=== PATIENT | male | born 1975 | race Hispanic/Latino ===

== ENCOUNTER 2024-11-01 16:24 | Emergency (ER) | payer BC ==
[2024-11-01 17:03] LABS: Sqamous Epithelial None Seen /HPF (None Seen); Urine Culture Reflex Order REFLEXED; Urine Microscopic Reflex YN ORDER UMIC; Urine Yeast (Budding) Trace /HPF (None Seen)
[2024-11-01 17:31] LABS: Absolute Lymphocytes (CBC) 1.6 K/uL (0.7-4.9); Hematocrit 42.6 % (39.6-49.0); Hemoglobin 15.0 g/dL (13.6-17.9); MCH 30.6 pg (27.0-35.0); MCHC 35.2 g/dL (32.0-36.0); MCV 87.0 fL (80-100); MPV 8.2 fL (7.6-11.3); Nucleated RBC Absolute Count 0.0 (0-0); Nucleated Red Blood Cells % 0.1 % (0-0); RBC Red Blood Cell Count 4.90 M/uL (4.33-5.43); White Blood Count 9.20 thou/uL (4.3-10.9)
[2024-11-01 17:50] LABS: ALT/SGPT 40.0 U/L (16-61); AST/SGOT 17.0 U/L (15-37); Albumin 3.7 g/dL (3.4-5.0); Albumin/Globulin Ratio 1.0 (1.1-1.8); Alkaline Phosphatase 88.0 U/L (45-117); Anion Gap 8.9 mEq/L (5.0-15.0); BUN Blood Urea Nitrogen 19.0 mg/dL (7-18); Globulin 3.7 g/dL (2.3-3.5); Glucose Level 122.0 mg/dL (74-106); Lipase 40.0 U/L (13-75); Potassium 3.9 mEq/L (3.5-5.1)
[2024-11-01] MEDS ORDERED: CEFTRIAXONE 1000 MG/VIAL ONE (18:28)
[2024-11-01] MEDS ORDERED: KETOROLAC 30 MG/ML INJ ONE (18:29)
--- NOTE | 2024-11-01 18:49 | RAD REPORT ---
EXAMINATION: CT Abdomen Pelvis W/Wo Contrast CLINICAL INDICATION: Male, 49 years old. [facility] MAIN left flank pain Bed Name: 12 TECHNIQUE: CT abdomen and pelvis was performed, before and after the administration of IV contrast, a s per department protocol. Axial, sagittal and coronal reconstructions were obtained. One or more of the following dose reduction techniques were used: Automated exposure control, adjustment of the m A and/or kV according to patient size, and/or iterative reconstruction. Unless otherwise specified, incidental findings do not require dedicated imaging follow-up. COMPARISON: No prior exam. FINDINGS: LOWER CHEST: The visualized lung bases are clear. LIVER: Normal in size and contour. No focal lesion. BILIARY SYSTEM: No suspicious abnormalities. PANCREAS: No mass, ductal dilation, or salma-pancreatic fluid. SPLEEN: Normal size. No focal lesion. ADRENALS: Normal; no mass. KIDNEYS AND URETERS: Normal size and contour. Bilateral parapelvic cysts larger on the left and promi nent left renal pelvis. No hydronephrosis or hydroureter. 2 mm left upper to interpolar nonobstructing calculus. No enhancing mass or filling defect within the renal pelvises. No suspiciou s filling defects within the ureters. URINARY BLADDER: Normal in appearance. No suspicious mass or stone. GASTROINTESTINAL TRACT: No evidence of bowel obstruction, free air, significant free fluid or abscess . APPENDIX: No inflammatory changes in region of appendix. LYMPH NODES: No lymphadenopathy. REPRODUCTIVE ORGANS: No pathologic process. MUSCULOSKELETAL: No acute or suspicious osseous abnormality. ADDITIONAL FINDINGS: None. IMPRESSION: Left upper to interpolar 2 mm calculus. No other acute or significant abnormalities seen in the abdomen or pelvis. Incidental findings as abo ve.
--- NOTE | 2024-11-01 19:10 | EDPHYS ---
Physician Documentation [facility] Name: Mat Arias Sr Age: 49 yrs Sex: Male : 1975 Arrival Date: 11/01/2024 Time: 16:24 Bed 12 Private MD: ED Physician Simona Granger HPI: 11/01 16:45 This 49 yrs old Male presents to ER via Ambulatory with complaints of Urinary Problem. cp 16:45 The patient presents with urinary symptoms, dysuria, urinary frequency. Onset: The cp symptoms/episode began/occurred 1 month(s) ago. 16:45 Associated signs and symptoms: Pertinent positives: flank pain, Pertinent negatives: cp abdominal pain, diarrhea, fever, penile discharge. Severity of symptoms: in the emergency department the symptoms are unchanged, despite home interventions. Historical: - Allergies: 16:58 No Known Allergies; iw - PMHx: 16:58 Hypertensive disorder; iw - Immunization history:: Adult Immunizations up to date. - Infectious Disease History:: Denies. - Social history:: Smoking status: Patient denies any tobacco usage or history of. ROS: 16:50 Constitutional: Negative for fever, poor PO intake, cp 16:50 Respiratory: Negative for cough, shortness of breath, wheezing, cp 16:50 Abdomen/GI: Negative for abdominal pain, vomiting, diarrhea, constipation, 16:50 Back: Positive for flank pain, on the left, 16:50 : Positive for urinary frequency, burning with urination, Negative for penile discharge, testicular pain 16:50 Skin: Positive for rash, of the penile head, 16:50 All other systems are negative, Exam: 16:55 Constitutional: The patient appears in no acute distress, alert, awake, non-toxic, well cp developed, well nourished, overweight 16:55 Head/Face: Normocephalic, atraumatic. cp 16:55 Eyes: Periorbital structures: appear normal, Conjunctiva: normal, no exudate, no injection, Sclera: no appreciated abnormality, Lids and lashes: appear normal, bilaterally, 16:55 ENT: External ear(s): are unremarkable, Nose: is normal, Mouth: Lips: moist, Oral mucosa: moist, Posterior pharynx: Airway: no evidence of obstruction, patent, 16:55 Chest/axilla: Inspection: normal, 16:55 Cardiovascular: Rate: tachycardic, 16:55 Respiratory: the patient does not display signs of respiratory distress, Respirations: normal, no use of accessory muscles, no retractions, labored breathing, is not present, Breath sounds: are clear throughout, no decreased breath sounds, no stridor, no wheezing, 16:55 Abdomen/GI: Inspection: abdomen appears normal, Bowel sounds: active, all quadrants, Palpation: soft, in all quadrants, mild abdominal tenderness, in the left lower quadrant, 16:55 Back: CVA tenderness, that is mild, is noted on the left, 16:55 Skin: rash can be described as areas of hyperpigmentation with no erythema, on the head of penis, 16:55 Neuro: Orientation: to person, place \T\ time. Mentation: is normal, Gait: is steady, at a normal pace, without difficulty, Vital Signs: 16:56 BP 127 / 102; Pulse 101; Resp 18; Temp 97.8; Pulse Ox 97% on R/A; Weight 90.72 kg; iw Height 5 ft. 5 in. ; Pain 7/10; 18:36 BP 125 / 72; Pulse 100; Resp 16; Pulse Ox 100% on R/A; iw 19:45 BP 126 / 89; Pulse 106; Resp 18 S; Pulse Ox 99% on R/A; Pain 5/10; br2 16:56 Body Mass Index 33.28 (90.72 kg, 165.1 cm) iw 16:56 Pain Scale: Adult iw 19:45 Pain Scale: Adult br2 MDM: 18:00 Differential diagnosis: UTI, urinary retention, prostatitis, urethritis, STD, kidney cp stone, pyelonephritis. 19:09 Medical Screening Exam initiated 19:09 Data reviewed: vital signs, nurses notes, lab test result(s), radiologic studies, CT cp scan, and as a result, I will discharge patient. 19:09 I considered the following discharge prescriptions or medication management in the emergency department Medications were administered in the Emergency Department. See MAR. Care significantly affected by the following chronic conditions: Hypertension. Counseling: I had a detailed discussion with the patient and/or guardian regarding the historical points, exam findings, and any diagnostic results supporting the discharge/admit diagnosis, lab results, radiology results, to return to the emergency department if symptoms worsen or persist or if there are any questions or concerns that arise at home. Response to treatment: the patient's symptoms have mildly improved after treatment, and as a result, I will discharge patient. 11/01 16:42 Order name: UA Rfx Randy Cult if indicated; Complete Time: 17:08 cp 11/01 17:08 Interpretation: Reviewed. cp 11/01 17:08 Order name: Urine Culture EDMS 11/01 17:09 Order name: CBC with Diff; Complete Time: 18:03 cp 11/01 17:09 Order name: CMP; Complete Time: 18:03 cp 11/01 17:09 Order name: Lipase; Complete Time: 18:03 cp 11/01 17:15 Order name: GC (Roberto/Chl) Probe CX/URE (Do not order if pt is under 13, order Culture cp instead) 11/01 17:09 Order name: CT Abd/Pelvis- W/WO Contrast; Complete Time: 18:56 cp 11/01 18:57 Interpretation: Reviewed. 11/01 17:09 Order name: IV Saline Lock; Complete Time: 17:29 cp 11/01 17:09 Order name: Labs collected and sent; Complete Time: 17:29 cp Administered Medications: 18:35 Drug: Rocephin IV 1 grams IV at calculated rate once; Given slow IV push per pharmacy iw instructions Route: IV; Rate: calculated rate; Site: right antecubital; 19:15 Follow up: Response: No adverse reaction; IV Status: Completed infusion; IV Intake: [id number] 18:35 Drug: Ketorolac IVP 15 mg IVP once Route: IVP; Site: right antecubital; iw 19:15 Follow up: Response: No adverse reaction br2 19:42 Drug: LevOfloxacin PO 500 mg PO once Route: PO; br2 19:45 Follow up: Response: Medication administered at discharge. br2 Disposition: 11/02 17:18 Chart complete. cp Disposition Summary: 11/01/24 19:09 Discharge Ordered Notes: Location: Home cp Problem: new cp Symptoms: have improved cp Condition: Stable cp Diagnosis - UTI/ Urinary tract infection, site not specified cp Followup: cp - With: Private Physician - When: 1 week - Reason: Recheck today's complaints Discharge Instructions: - Discharge Summary Sheet cp - Urinary Tract Infection, Adult cp Forms: - Medication Reconciliation Form cp - Antibiotic Education cp - Prescription Opioid Use cp - Patient Portal Instructions cp - Leadership Thank You Letter cp Prescriptions: - ketoconazole 2 % Topical cream - apply 1 application TOPICAL route 2-3 times daily for 8-10 days; 30 gram tube; cp Refills: 0, Product Selection Permitted - levofloxacin 500 mg Oral tablet - take 1 tablet ORAL route once daily for 8-10 days continue taking evening of cp 11-02-2024; 9 tablet; Refills: 0, Product Selection Permitted Signatures: Dispatcher [employer] Jessica Fuentes, RN RN iw Mg Buckner PA PA Miladys Crane RN RN br2
--- NOTE | 2024-11-01 19:10 | ER ---
Nurse's Notes [facility] Name: Mat Arias Sr Age: 49 yrs Sex: Male : 1975 Arrival Date: 11/01/2024 Time: 16:24 Bed 12 Private MD: Diagnosis: UTI/ Urinary tract infection, site not specified Presentation: 11/01 16:56 Chief complaint: Patient states: burning during and after urination x1 month. iw Coronavirus screen: At this time, the client does not indicate any symptoms associated with coronavirus-19. Ebola Screen: No symptoms or risks identified at this time. Initial Sepsis Screen: Does the patient meet any 2 criteria? No. Patient's initial sepsis screen is negative. Does the patient have a suspected source of infection? No. Patient's initial sepsis screen is negative. Risk Assessment: Do you want to hurt yourself or someone else? Patient reports no desire to harm self or others. Onset of symptoms was October 01, 2024. 16:56 Method Of Arrival: Ambulatory iw 16:56 Acuity: HUNG 4 iw 17:27 Acuity: HUNG 3 iw Historical: - Allergies: 16:58 No Known Allergies; iw - PMHx: 16:58 Hypertensive disorder; iw - Immunization history:: Adult Immunizations up to date. - Infectious Disease History:: Denies. - Social history:: Smoking status: Patient denies any tobacco usage or history of. Screenin:28 [facility] ED Fall Risk Assessment (Adult) History of falling in the last 3 months, iw including since admission No falls in past 3 months (0 pts) Confusion or Disorientation No (0 pts) Intoxicated or Sedated No (0 pts) Impaired Gait No (0 pts) Mobility Assist Device Used No (0 pt) Altered Elimination No (0 pt) Score/Fall Risk Level 0 - 2 = Low Risk Oriented to surroundings, Maintained a safe environment. Abuse screen: Denies threats or abuse. Nutritional screening: No deficits noted. Tuberculosis screening: No symptoms or risk factors identified. Assessment: 17:27 General: Appears in no apparent distress. Behavior is calm, cooperative. Pain: iw Complains of pain in abdomen Pain radiates to anterior aspect of left lateral abdomen and posterior aspect of left lateral abdomen Pain. Neuro: Level of Consciousness is awake, alert, obeys commands, Oriented to person, place, time, situation, Moves all extremities. Full function. Cardiovascular: Patient's skin is warm and dry. Respiratory: Respiratory effort is even, unlabored, Respiratory pattern is regular, symmetrical. : Reports burning with urination, pain in suprapubic area lower quadrant(s) in lower back with urination. Derm: Skin is intact, is healthy with good turgor. 18:36 Reassessment: Patient appears in no apparent distress at this time. Patient and/or iw family updated on plan of care and expected duration. Pain level reassessed. Patient is alert, oriented x 3, equal unlabored respirations, skin warm/dry/pink. Vital Signs: 16:56 BP 127 / 102; Pulse 101; Resp 18; Temp 97.8; Pulse Ox 97% on R/A; Weight 90.72 kg; iw Height 5 ft. 5 in. ; Pain 7/10; 18:36 BP 125 / 72; Pulse 100; Resp 16; Pulse Ox 100% on R/A; iw 19:45 BP 126 / 89; Pulse 106; Resp 18 S; Pulse Ox 99% on R/A; Pain 5/10; br2 16:56 Body Mass Index 33.28 (90.72 kg, 165.1 cm) iw 16:56 Pain Scale: Adult iw 19:45 Pain Scale: Adult br2 ED Course: 16:32 Patient arrived in ED. im 16:37 Mg Buckner PA is PHCP. cp 16:37 Simona Granger MD is Attending Physician. cp 16:58 Triage completed. iw 17:06 Jessica Lama, RN is Primary Nurse. iw 17:28 Patient has correct armband on for positive identification. iw 18:00 Initial lab(s) drawn, by me, sent to lab. Inserted saline lock: 20 gauge in right iw antecubital area, using aseptic technique. Blood collected. Flushed with 10 mL NS. 18:05 CT Abd/Pelvis- W/WO Contrast In Process Unspecified. EDMS 19:55 No provider procedures requiring assistance completed. IV discontinued, intact, br2 bleeding controlled, No redness/swelling at site. Pressure dressing applied. Administered Medications: 18:35 Drug: Rocephin IV 1 grams IV at calculated rate once; Given slow IV push per pharmacy iw instructions Route: IV; Rate: calculated rate; Site: right antecubital; 19:15 Follow up: Response: No adverse reaction; IV Status: Completed infusion; IV Intake: [id number] 18:35 Drug: Ketorolac IVP 15 mg IVP once Route: IVP; Site: right antecubital; iw 19:15 Follow up: Response: No adverse reaction br2 19:42 Drug: LevOfloxacin PO 500 mg PO once Route: PO; br2 19:45 Follow up: Response: Medication administered at discharge. br2 Medication: 17:28 VIS not applicable for this client. iw Intake: 19:15 IV: 10ml; Total: 10ml. br2 Outcome: 19:09 Discharge ordered by MD. cp 19:55 Patient left the ED. br2 19:55 Discharged to home ambulatory, br2 19:55 Condition: improved 19:55 Discharge instructions given to patient, Instructed on discharge instructions, follow up and referral plans. Demonstrated understanding of instructions, follow-up care, medications, Prescriptions given X 2, Addendum: 11/05/2024 16:57 Addendum: Culture Results: Positive urine culture. No further action required. Bacteria j l7 sensitive to prescribed antibiotic. Signatures: Dispatcher [employer] EDJessica Robertson RN RN Mg Ludiwg PA PA cp Leal, Jahala, RN RN [id number] Natasha Nicholas Belinda RN RN br2
[2024-11-01] MEDS ORDERED: levoFLOXacin 250 MG TAB ONE (19:11)
[2024-11-01 20:11] VITALS: BP 127/102; TEMP 97.8; O2SAT 97
[2024-11-05 07:43] LABS: C.trachomatis RNA,TMA Not Detected (Not Detected); N.gonorrhoeae RNA,TMA Not Detected (Not Detected)
== END 2024-11-01 19:55 | disposition home or self-care (01) ==
LOC: ER 16:24
DX: N39.0 Urinary tract infection, site not specified (principal); I10 Essential (primary) hypertension
CPT/HCPCS: 96365; 87088; 85025; 81001; 87086; 36415; 87077; 87186; 83690; 80053; 87590; 87490; 74178; 96375; 99284; Q9967; J0696